=== PATIENT | female | born 1970 | race Two or more races ===

== ENCOUNTER 2022-07-26 16:22 | Emergency (ER) | payer BC, MEDICAID ==
[~2022-07-26] VITALS: Ht 160 cm; Wt 90.0 kg
== END 2022-07-26 16:33 | disposition short-term general hospital (02) ==
LOC: EDBD 16:22 → ER 16:22
DX: R20.0 Anesthesia of skin (principal); R29.810 Facial weakness; Z53.21 Procedure and treatment not carried out due to patient leaving prior to being seen by health care provider

== ENCOUNTER 2023-03-05 23:54 | Emergency (ER) | payer BC, MEDICAID ==
[~2023-03-05] VITALS: Ht 160 cm; Wt 111.8 kg
[2023-03-06 01:15] LABS: Basophils # (auto) 0 10 ^3/uL (0-0.2); Basophils % (auto) 0.3 % (0.0-2.0); Eosinophils # (auto) 0 10 ^3/uL (0-0.8); Hematocrit 39.6 % (36.0-46.0); Hemoglobin 13.2 g/dL (12.2-16.2); Lymphocytes # (auto) 0.6 10 ^3/uL (0.4-5.4); Lymphocytes % (auto) 6.4 % (10.0-50.0); Mean Corpuscular Hemoglobin 29.9 pg (28.0-32.0); Mean Corpuscular Hgb Conc. 33.3 g/dL (32.0-36.0); Mean Corpuscular Volume 89.7 fL (80.0-100.0); Monocytes # (auto) 0.3 10 ^3/uL (0-1.3); Monocytes % (auto) 3.3 % (0.0-12.0); Neutrophils # (auto) 8.1 10 ^3/uL (1.6-8.6); Red Blood Cells 4.42 10^6/uL (4.0-5.20)
[2023-03-06] MEDS ORDERED: cloNIDine HCL 0.1 MG TAB PO ONE ×2 (01:15→06:15)
[2023-03-06 01:31] LABS: Alanine Aminotransferase 32 U/L (7-40); Albumin 4.1 g/dL (3.2-4.8); Alkaline Phosphatase 100 U/L (46-116); Anion Gap 10 (5-15); Aspartate Aminotransferase 13 U/L (13-40); BUN/Creatinine Ratio 18.9 (10.0-20.0); Blood Urea Nitrogen 18 mg/dL (9-23); Calcium 9.1 mg/dL (8.7-10.4); Carbon Dioxide 28 mmol/L (20-30); Chloride 98 mmol/L (98-107); Lactic Acid w/Reflex 4.9 mmol/L (0.4-2.0); Magnesium 1.5 mg/dL (1.6-2.6); Potassium 3.4 mmol/L (3.5-5.1); Sodium 136 mmol/L (136-145)
[2023-03-06 01:32] LABS: Bilirubin, Total 0.5 mg/dL (0.2-1.0); Phosphorus 2.7 mg/dL (2.4-5.1); Total Protein 6.2 g/dL (5.7-8.2)
[2023-03-06 01:34] LABS: Glucose 448 mg/dL (74-106)
[2023-03-06] MEDS ORDERED: InsuLIN REG 1unit/0.01ml Soln (100units/ml) IV ONE (01:45)
[2023-03-06] MEDS ORDERED: SODIUM CHLORIDE 0.9% 1,000 ML IV ONE (01:45)
[2023-03-06 02:02] LABS: Erythrocyte Sedimentation Rate 19 mm/hr (0-20)
[2023-03-06] MEDS ORDERED: LORATADINE 10 MG TAB PO ONE (02:30)
[2023-03-06 05:23] LABS: Urine Bacteria FEW /hpf (None Seen); Urine Blood Negative /uL (Negative); Urine Clarity Clear (Clear); Urine Color Colorless (Yellow); Urine Protein, UAD TRACE (Negative); Urine Specific Gravity 1.043 (1.001-1.035); Urine Urobilinogen Normal (Negative); Urine WBC 3 /hpf (0 - 5)
[2023-03-06 07:34] VITALS: BP 137/84; PULSE 79; RESP 18; TEMP 97.9; O2SAT 96
== END 2023-03-06 21:05 | disposition left against medical advice (07) ==
LOC: ER 23:54
DX: L03.115 Cellulitis of right lower limb (principal); L03.116 Cellulitis of left lower limb; E11.65 Type 2 diabetes mellitus with hyperglycemia; I83.009 Varicose veins of unspecified lower extremity with ulcer of unspecified site; I16.0 Hypertensive urgency; E87.20 Acidosis, unspecified; Z88.0 Allergy status to penicillin; Z88.1 Allergy status to other antibiotic agents
CPT/HCPCS: 36415; 71045; 80053; 81001; 83605; 83735; 83880; 84100; 84484; 85025; 85379; 85652; 86141; 87040; 93005; 93970; 96360; 96361; 99285; J7030

== ENCOUNTER 2025-04-13 00:38 | Inpatient (IN) | payer BC, MEDICAID ==
[~2025-04-13] VITALS: Ht 162.6 cm; Wt 116.9 kg
--- NOTE | 2025-04-13 01:05 | ED.PDOC ---
Psychiatric HPI Comments 54-year-old female who came to ER via EMS for suicidal ideations. Per EMS patient picked up at home. Does have history of hypertension and diabetes/diabetic foot. Initial call for shortness of breath, saturating 94% on room air. However patient did started talking that she wanted to kill herself. States she was about to anyway, so she wants to shoot herself with a gun to get it over with. Chief Complaint: Suicidal Time Seen by MD: 01:04 Reviewed Notes: Senior Quality Analyst Notes Information Source: Patient Past Medical History PAST MEDICAL HISTORY: DM, HTN Past Medical History (Other): Diabetic foot Surgical History: Denies all surgeries ASSOCIATE MERCHANT History: Denies all ASSOCIATE MERCHANT Hx Family History Family History: Reviewed,noncontributory to illness Social History Smoker: Non-Smoker Alcohol: Denies ETOH Use Drugs: Denies Drug Use Lives In: Home Constitutional: denies: chills, diaphoresis, fatigue, fever, malaise, sweats, weakness, others EENTM: denies: blurred vision, double vision, ear bleeding, ear discharge, ear drainage, ear pain, ear ringing, eye pain, eye redness, hearing loss, mouth pain, mouth swelling, nasal discharge, nose bleeding, nose congestion, nose pain, photophobia, tearing, throat pain, throat swelling, voice changes, others Respiratory: denies: cough, hemoptysis, orthopnea, SOB at rest, shortness of breath, SOB with excertion, stridor, wheezing, others Cardiovascular: denies: chest pain, dizzy spells, diaphoresis, Dyspnea on exertion, edema, irregular heart beat, left arm pain, lightheadedness, palpitations, PND, syncope, others Gastrointestinal: denies: abdomen distended, abdominal pain, blood streaked bowels, constipated, diarrhea, dysphagia, difficulty swallowing, hematemesis, melena, nausea, poor appetite, poor fluid intake, rectal bleeding, rectal pain, vomiting, others Genitourinary: denies: abnormal vagina bleeding, burning, dyspareunia, dysuria, flank pain, frequency, hematuria, incontinence, pain, , vagina discharge, urgency, others Neurological: denies: dizziness, fainting, headache, left sided numbness, left sided weakness, numbness, paresthesia, pre-existing deficit, right sided numbness, right sided weakness, seizure, speech problems, tingling, tremors, weakness, others Musculoskeletal: denies: back pain, gout, joint pain, joint swelling, muscle pain, muscle stiffness, neck pain, others Integumetry: reports: wounds; denies: bruises, change in color, change in hair/nails, dryness, laceration, lesions, lumps, rash, others Allergic/Immunocompromised: denies: Difficulty Healing, Frequent Infections, Hives, Itching, others Hematologic/Lymphatic: denies: anemia, blood clots, easy bleeding, easy bruising, swollen glands, others Endocrine: denies: excessive hunger, excessive sweating, excessive thirst, excessive urination, flushing, intolerance to cold, intolerance to heat, unexplained weight gain, unexplained weight loss, others Psychiatric: reports: suicidal Physical Exam General Appearance: No Apparent Distress, Normal HEENT: Normal ENT Inspection, Pharynx Normal, TMs Normal Neck: Full Range of Motion, Non-Tender, Normal, Normal Inspection Respiratory: Chest Non-Tender, Lungs Clear, No Accessory Muscle Use, No Respiratory Distress, Normal Breath Sounds Cardiovascular: No Edema, No JVD, No Murmur, No Gallop, Normal Peripheral Pulses, Regular Rate/Rhythm Breast Exam: Deferred Gastrointestinal: No Organomegaly, Non Tender, No Pulsatile Mass, Normal Bowel Sounds, Soft Genitalia: Deferred Pelvic: Deferred Rectal: Deferred Extremities: No calf tenderness, Normal capillary refill, Normal inspection, Normal range of motion, Non-tender, No pedal edema Musculoskeletal : Apperance: Normal Neurologic: Alert, product marketing intern II-XII nml as Tested, No Motor Deficits, Normal Affect, Normal Mood, No Sensory Deficits Cerebellar Function: Normal Reflexes: Normal Skin: Dry, Normal Color, Warm Lymphatic: No Adenopathy Was a procedure done? Was a procedure done?: No Psych Differential Dx Suicidal Differential Dx: Anxiety, Bipolar Disorder, Depression, Personality Disorder, Schizoprenia X-Ray, Labs, Meds, VS Vital Signs Date Time Temp Pulse Resp B/P (MAP) Pulse Ox O2 Delivery O2 Flow Rate FiO2 04/13/25 01:55 104 20 97 Room Air* 0 21 04/13/25 01:19 98.1 107 20 178/104 (128) 97 98.1 04/13/25 00:40 98.0 112 18 161/101 96 98.0 Lab Test 04/13/25 02:26 04/13/25 02:25 04/13/25 01:28 Range/Units Urine Color Light-yellow Yellow Urine Clarity Clear Clear Urine pH 5.5 5.0-9.0 Urine Specific [place] 1.022 1.001-1.035 Urine Protein Trace H Negative Urine Ketones Negative Negative Urine Blood Negative Negative /uL Urine Nitrite Negative Negative Urine Bilirubin Negative Negative Urine Urobilinogen Normal Negative mg/dL Urine Leukocyte Esterase Negative Negative /uL Urine RBC 1 0 - 4 /hpf Urine Microscopic WBC 2 0-5 /HPF Urine Squamous Epithelial Cells Few <5 /hpf Urine Bacteria None seen None Seen /hpf Urine Glucose 4+ H Normal mg/dL Urine Opiates Screen Neg NEGATIVE Urine Fentanyl Screen Neg NEGATIVE Urine Barbiturates Screen Neg NEGATIVE Urine Phencyclidine Screen Neg NEGATIVE Urine Amphetamines Screen Neg NEGATIVE Urine Benzodiazepines Screen Neg NEGATIVE Urine Cocaine Screen Neg NEGATIVE Urine Cannabinoids Screen Neg NEGATIVE Troponin I High Sensitivity 25 31 </=34 ng/L White Blood Count 14.0 H 4.4-10.8 10^3/uL Red Blood Count 3.29 L 4.0-5.20 10^6/uL Hemoglobin 8.7 L 12.2-16.2 g/dL Hematocrit 27.5 L 36.0-46.0 % Mean Corpuscular Volume 83.4 80.0-100.0 fL Mean Corpuscular Hemoglobin 26.4 L 28.0-32.0 pg Mean Corpuscular Hemoglobin Concent 31.7 L 32.0-36.0 g/dL Red Cell Distribution Width 22.5 H 11.8-14.3 % Platelet Count 231 140-450 10^3/uL Mean Platelet Volume 8.0 6.9-10.8 fL Neutrophils (%) (Auto) 96.2 H 37.0-80.0 % Lymphocytes (%) (Auto) 2.7 L 10.0-50.0 % Monocytes (%) (Auto) 1.1 0.0-12.0 % Eosinophils (%) (Auto) 0.0 0.0-7.0 % Basophils (%) (Auto) 0.0 0.0-2.0 % Neutrophils # (Auto) 13.5 H 1.6-8.6 10 ^3/uL Lymphocytes # (Auto) 0.4 0.4-5.4 10 ^3/uL Monocytes # (Auto) 0.2 0-1.3 10 ^3/uL Eosinophils # (Auto) 0 0-0.8 10 ^3/uL Basophils # (Auto) 0 0-0.2 10 ^3/uL Nucleated Red Blood Cells 0.0 % Sodium Level 143 136-145 mmol/L Potassium Level 4.0 3.5-5.1 mmol/L Chloride Level 105 98-107 mmol/L Carbon Dioxide Level 27 20-31 mmol/L Anion Gap 11 5-15 Blood Urea Nitrogen 23 9-23 mg/dL Creatinine 0.95 0.550-1.02 mg/dL Glomerular Filtration Rate Calc 72 >90 mL/min BUN/Creatinine Ratio 24.2 H 10.0-20.0 Serum Glucose 383 H 74-106 mg/dL Lactic Acid Level 1.6 0.4-2.0 mmol/L Calcium Level 8.3 L 8.7-10.4 mg/dL Total Bilirubin 0.3 0.2-1.0 mg/dL Aspartate Amino Transferase (AST) 23 13-40 U/L Alanine Aminotransferase (ALT) 21 7-40 U/L Alkaline Phosphatase 125 H 46-116 U/L Total Protein 5.2 L 5.7-8.2 g/dL Albumin 3.1 L 3.2-4.8 g/dL Salicylates Level < 3.0 -30 mg/dL Acetaminophen Level < 2.0 L 10.0-20.0 UG/ML Plasma/Serum Blood Alcohol < 3.0 <10 mg/dL Current Medications Medications (Trade) Dose Ordered Sig/Mary [place] Route Start Time Stop Time Status Last Admin Insulin Human Regular (InsuLIN R) 5 units ONCE ONCE IV 04/13/25 03:00 04/13/25 03:01 DC 04/13/25 03:00 Sodium Chloride 1,000 ml @ 1,000 mls/hr Q1H ONCE IV 04/13/25 03:00 04/13/25 03:59 04/13/25 03:00 Time of 1ST Reevaluation: 01:04 Reevaluation 1ST: Unchanged Patient Education/Counseling: Diagnosis, Treatment Family Education/Counseling: No Family Present Departure 1 Departure Time of Disposition: 03:49 Impression: Primary Impression: Uncontrolled diabetes mellitus Additional Impressions: Severe hyperglycemia due to diabetes mellitus Cellulitis of both feet Verbalizes suicidal thoughts Disposition: 09 ADMITTED INPATIENT Admit to: Med Surg Condition: Guarded Discharged With: Self Comments 54 yo female with h/o type 2 DM now with severe hyperglycemia and bilateral foot cellulitis with diabetic foot ulcers. patient expresses suicidal thoughts but no active plan. patient will need admission for supportive care and further workup Critical Care Note Critical Care Time?: Yes (35 min-critical care time only) Critical care comment: Total critical care time: Approximately 36 minutes Due to a high probability of clinically significant, life threatening deterioration, the patient required my highest level of preparedness to intervene emergently and I personally spent this critical care time directly and personally managing the patient. This critical care time included obtaining a history; examining the patient; pulse oximetry; ordering and review of studies; arranging urgent treatment with development of a management plan; evaluation of patient's response to treatment; frequent reassessment; and, discussions with other providers. This critical care time was performed to assess and manage the high probability of imminent, life-threatening deterioration that could result in multi-organ failure. It was exclusive of separately billable procedures and treating other patients. Stability Stability form required: No Heart Score Heart Score: Heart Score Response (Comments) Value History N/A 0 EKG N/A 0 Age N/A 0 Risk Factors N/A 0 Troponin N/A 0 Total 0 I personally scribed for SHALA BRANNON MD ([email or web address]) on 04/13/25 at 01:05. Electronically submitted by Saman uBll ([email or web address]). SHALA BRANNON MD Apr 13, 2025 01:05
[2025-04-13 01:51] LABS: Hematocrit 27.5 % (36.0-46.0)
[2025-04-13 01:53] LABS: Hemoglobin 8.7 g/dL (12.2-16.2); Mean Corpuscular Hemoglobin 26.4 pg (28.0-32.0); Mean Corpuscular Volume 83.4 fL (80.0-100.0); Nucleated Red Blood Cells % 0.0 %
[2025-04-13 01:55] VITALS: PULSE 104; RESP 20; O2SAT 97
[2025-04-13] MEDS ORDERED: CLINDAMYCIN 600MG IV 50 ML IV SCH (02:00)
[2025-04-13 02:06] LABS: Alanine Aminotransferase 21 U/L (7-40); Anion Gap 11 (5-15); BUN/Creatinine Ratio 24.2 (10.0-20.0); Bilirubin, Total 0.3 mg/dL (0.2-1.0); Carbon Dioxide 27 mmol/L (20-31); Chloride 105 mmol/L (98-107); Potassium 4.0 mmol/L (3.5-5.1); Sodium 143 mmol/L (136-145)
[2025-04-13 02:07] LABS: Acetaminophen < 2.0 UG/ML (10.0-20.0); Salicylate < 3.0 mg/dL (-30)
[2025-04-13 02:09] LABS: Albumin 3.1 g/dL (3.2-4.8); Alkaline Phosphatase 125 U/L (46-116); Blood Urea Nitrogen 23 mg/dL (9-23); Calcium 8.3 mg/dL (8.7-10.4); Glucose 383 mg/dL (74-106); Total Protein 5.2 g/dL (5.7-8.2)
[2025-04-13 02:42] LABS: Urine Protein, UAD TRACE (Negative)
[2025-04-13 02:44] LABS: Benzodiazephine Screen, Urine Neg (NEGATIVE)
[2025-04-13 02:47] LABS: Amphetamine Screen, Urine Neg (NEGATIVE); Barbiturate Scree,Urine Neg (NEGATIVE); Cannabinoid Screen, Urine Neg (NEGATIVE); Cocaine Screen, Urine Neg (NEGATIVE); Opiate Scree,Urine Neg (NEGATIVE); Phencyclidine Screen, Urine Neg (NEGATIVE)
[2025-04-13] MEDS: InsuLIN REG 1unit/0.01ml Soln (100units/ml) IV ONE (03:00)
[2025-04-13] MEDS: SODIUM CHLORIDE 0.9% 1,000 ML IV ONE (03:00)
[2025-04-13] MEDS: VANCOMYCIN 1GM/250ML KIT 250 ML IV ONE (04:07)
[2025-04-13] MEDS: ceFAZolin 1GM/50ML 50 ML IV ONE (04:15)
[2025-04-13] MEDS ORDERED: DEXTROSE (50%) 50ML SYRG IV PRN (05:45)
[2025-04-13] MEDS ORDERED: VANCOMYCIN PER PHARMACY 0 MG IV SCH (05:45)
[2025-04-13] MEDS ORDERED: ACETAMINOPHEN 325 MG TAB PO PRN (05:45)
[2025-04-13] MEDS ORDERED: ONDANSETRON HCL 4 MG/2 ML VIAL IV PRN (05:45)
[2025-04-13] MEDS: CLINDAMYCIN 600MG IV 50 ML IV SCH (06:00)
--- NOTE | 2025-04-13 06:09 | DVHHP2 ---
Admitting Diagnosis: Bilateral lower extremity diabetic ulcers, BLE cellulitis, Leukocytosis, Anemia, SI History of Present Illness History Source: Patient Exam Limitations: No limitations HPI Mrs. Lila Price is a 54-year-old female with a history of DM, non compliant, hypertension, chronic venous stasis, who presents with a chief complaint of shortness of breath for suicidal ideations. Patient is on room air with 02 saturations of 97% with no respiratory distress. Patient reports she forgot to take her insulin and that is why her glucose levels are high. Patient reports she does not have anymore SI or thoughts of harming others. Patient states last time she saw wound care was about a month ago and has been managing her diabetic leg ulcers on her own. Patient denies chest pain, fevers, chills. Patient admitted for further evaluation and treatment. Past Medical History Cardiac: HTN Endocrine: IDDM Others BLE diabetic ulcers Review of Systems Constitutional: No symptom reported Ears, Nose, & Throat: No symptom reported Eyes: No symptom reported Pulmonary/Respiratory: Dyspnea Cardiovascular: No symptom reported Gastrointestinal: No symptom reported Genitourinary: No symptom reported Musculoskeletal: No symptom reported Skin: No symptom reported Psychiatric: No symptom reported Endocrine: No symptom reported Hemotologic/Lymphatic: No symptom reported H&P Exam Vital Signs Vital Signs Date Time Temp Pulse Resp B/P (MAP) Pulse Ox O2 Delivery O2 Flow Rate FiO2 04/13/25 04:45 97.9 88 18 137/96 (110) 97 97.9 04/13/25 01:55 Room Air* 0 21 General Appeara: Well developed, Well nourished, Other (morbid obesity) Head Exam: Normal inspection Neck Exam: Normal inspection, Non-tender, Normal alignment Eye Exam: bilateral eye Normal inspection, bilateral eye PERRL, bilateral eye EOMI Ear Exam: bilateral ear Auricle normal Nasal Exam: Normal inspection Mouth: Normal Inspection Pulmonary/Respiratory: Normal inspection, Normal breath sounds, Chest non- tender, Lungs clear Cardiovascular/Chest: Normal inspection, Regular rate, Normal Rhythm Peripheral Pulses: 2+ Radial (R), 2+ Radial (L) Abdominal Exam: Normal bowel sounds, Soft, No tenderness Legs: bilateral leg pain, bilateral leg swelling, bilateral leg other (diabetic ulcers) Foot: bilateral foot swelling SUPERIOR COURT JUDGE Exam: Normal hearing, Normal speech, PERRL Neuro/Mental St: Alert, Oriented Appearance: Appropriate appearance, Appropriate insight Eye contact/ Speech: Cooperative, Normal speech, Avoids eye contact Thoughts/Psych: Normal thought pattern Skin Exam: Normal color, Warm/dry, Other (BLE venous stasis with diabetic ulcers ) SEPSIS Sepsis Screen Date sepsis recognized/suspect: Apr 13, 2025 Time Sepsis recognized/suspect: 0123 Recent Procedure: No On Antibiotic Therapy: No Respiratory Rate >20: No Heart Rate >90: No Temp<36 C (96.8 F) or >38.3 C: No SBP <90 or MAP <65 mmHG: No New Acute Mental Status Change: Yes Is the patient on CPAP, BIPAP,: No Physician Orders Blood Culture (04/13/25 00:57) Chest Portable (04/13/25 00:57) Troponin-I Hs (04/13/25 03:57) R Foot 2 View Xray (04/13/25 01:00) L Foot 2 View Xray (04/13/25 01:00) *Tele Psych Consult (04/13/25 04:55) Initiate Soc Call (04/13/25 04:55) Sitter 1:1 (04/13/25 04:56) Left Lower Extremity Ultrasoun (04/13/25 05:44) Right Lower Extremity Ultrasou (04/13/25 05:44) D-Dimer (04/13/25 05:44) * Fiber Optics Technician Consult (04/13/25 ) Admit (04/13/25 05:44) *Rn Transformation Lead Referral (04/13/25 05:44) [facility]Diabetes (04/13/25 Breakfast) * Wound Consult (04/13/25 ) Stat Ekg For Chest Pain (04/13/25 05:44) Notify Md Of Changes From Base (04/13/25 05:44) Wastewater Technician For 24 Hours (04/13/25 05:44) Emergency Dysrhythmia Protocol (04/13/25 05:44) Rhythm Strips Once Every Shift (04/13/25 05:44) Oxygen By Nasal Cannula (04/13/25 05:44) Complete Blood Count (04/14/25 05:00) Complete Blood Count (04/15/25 05:00) Stool Occult Blood (04/13/25 05:44) Wound Culture W/ Gs (04/13/25 05:44) Vancomycin (04/13/25 05:45) Clindamycin Ivpb Cleocin (04/13/25 06:00) Ondansetron Hcl (Zofran) (04/13/25 05:45) Famotidine Tablet (Pepcid Tablet) (04/13/25 10:00) Hydrocodone-Acet 5/325mg Tab ([place] 5/32 (04/13/25 05:45) Acetaminophen Tablet (Tylenol Tablet) (04/13/25 05:45) Glucose Blood (Accu-Chek Comfort Curve T (04/13/25 07:00) Mild Sliding Scale (04/13/25 07:00) Dextrose 50% Syringe (04/13/25 05:45) * Infectious [place]- Dr. Ledezma (04/13/25 05:44) Vital Signs Date Time Temp Pulse Resp B/P (MAP) Pulse Ox O2 Delivery O2 Flow Rate FiO2 04/13/25 04:45 97.9 88 18 137/96 (110) 97 97.9 04/13/25 01:55 104 20 97 Room Air* 0 21 04/13/25 01:19 98.1 107 20 178/104 (128) 97 98.1 04/13/25 00:40 98.0 112 18 161/101 96 98.0 Laboratory Tests Test 04/13/25 01:28 Lactic Acid Level 1.6 mmol/L (0.4-2.0) White Blood Count 14.0 10^3/uL (4.4-10.8) H Medications Medications Dose Ordered Sig/Mary Anne Route Start Time Stop Time Status Last Admin Dose Admin Cefazolin Sodium 50 ml @ 100 mls/hr ONCE ONCE IV 04/13/25 04:00 04/13/25 04:29 DC 04/13/25 04:15 100 MLS/HR Insulin Human Regular 5 units ONCE ONCE IV 04/13/25 03:00 04/13/25 03:01 DC 04/13/25 03:00 5 UNITS Sodium Chloride 1,000 ml @ 1,000 mls/hr Q1H ONCE IV 04/13/25 03:00 04/13/25 03:59 DC 04/13/25 03:00 1,000 MLS/HR Vancomycin HCl 250 ml @ 250 mls/hr ONCE ONCE IV 04/13/25 04:00 04/13/25 04:59 DC 04/13/25 04:07 250 MLS/HR Wounds BLE venous stasis, with diabetic ulcers Labs/Xrays Labs Test 04/13/25 04:49 04/13/25 02:26 04/13/25 01:28 Range/Units Urine Color Light-yellow Yellow Urine Clarity Clear Clear Urine pH 5.5 5.0-9.0 Urine Specific [place] 1.022 1.001-1.035 Urine Protein Trace H Negative Urine Ketones Negative Negative Urine Blood Negative Negative /uL Urine Nitrite Negative Negative Urine Bilirubin Negative Negative Urine Urobilinogen Normal Negative mg/dL Urine Leukocyte Esterase Negative Negative /uL Urine RBC 1 0 - 4 /hpf Urine Microscopic WBC 2 0-5 /HPF Urine Squamous Epithelial Cells Few <5 /hpf Urine Bacteria None seen None Seen /hpf Urine Glucose 4+ H Normal mg/dL Urine Opiates Screen Neg NEGATIVE Urine Fentanyl Screen Neg NEGATIVE Urine Barbiturates Screen Neg NEGATIVE Urine Phencyclidine Screen Neg NEGATIVE Urine Amphetamines Screen Neg NEGATIVE Urine Benzodiazepines Screen Neg NEGATIVE Urine Cocaine Screen Neg NEGATIVE Urine Cannabinoids Screen Neg NEGATIVE White Blood Count 14.0 H 4.4-10.8 10^3/uL Red Blood Count 3.29 L 4.0-5.20 10^6/uL Hemoglobin 8.7 L 12.2-16.2 g/dL Hematocrit 27.5 L 36.0-46.0 % Mean Corpuscular Volume 83.4 80.0-100.0 fL Mean Corpuscular Hemoglobin 26.4 L 28.0-32.0 pg Mean Corpuscular Hemoglobin Concent 31.7 L 32.0-36.0 g/dL Red Cell Distribution Width 22.5 H 11.8-14.3 % Platelet Count 231 140-450 10^3/uL Mean Platelet Volume 8.0 6.9-10.8 fL Neutrophils (%) (Auto) 96.2 H 37.0-80.0 % Lymphocytes (%) (Auto) 2.7 L 10.0-50.0 % Monocytes (%) (Auto) 1.1 0.0-12.0 % Eosinophils (%) (Auto) 0.0 0.0-7.0 % Basophils (%) (Auto) 0.0 0.0-2.0 % Neutrophils # (Auto) 13.5 H 1.6-8.6 10 ^3/uL Lymphocytes # (Auto) 0.4 0.4-5.4 10 ^3/uL Monocytes # (Auto) 0.2 0-1.3 10 ^3/uL Eosinophils # (Auto) 0 0-0.8 10 ^3/uL Basophils # (Auto) 0 0-0.2 10 ^3/uL Nucleated Red Blood Cells 0.0 % Sodium Level 143 136-145 mmol/L Potassium Level 4.0 3.5-5.1 mmol/L Chloride Level 105 98-107 mmol/L Carbon Dioxide Level 27 20-31 mmol/L Anion Gap 11 5-15 Blood Urea Nitrogen 23 9-23 mg/dL Creatinine 0.95 0.550-1.02 mg/dL Glomerular Filtration Rate Calc 72 >90 mL/min BUN/Creatinine Ratio 24.2 H 10.0-20.0 Serum Glucose 383 H 74-106 mg/dL Lactic Acid Level 1.6 0.4-2.0 mmol/L Calcium Level 8.3 L 8.7-10.4 mg/dL Total Bilirubin 0.3 0.2-1.0 mg/dL Aspartate Amino Transferase (AST) 23 13-40 U/L Alanine Aminotransferase (ALT) 21 7-40 U/L Alkaline Phosphatase 125 H 46-116 U/L Total Protein 5.2 L 5.7-8.2 g/dL Albumin 3.1 L 3.2-4.8 g/dL Salicylates Level < 3.0 -30 mg/dL Acetaminophen Level < 2.0 L 10.0-20.0 UG/ML Plasma/Serum Blood Alcohol < 3.0 <10 mg/dL Assessment/Plan Problem List: (1) Lower extremity cellulitis (2) Venous stasis ulcer (3) Severe hyperglycemia due to diabetes mellitus (4) Uncontrolled diabetes mellitus (5) Verbalizes suicidal thoughts (6) Leukocytosis (7) Anemia Plan This is a 54-year-old female with known history of DM, non compliant, hypertension, chronic venous stasis, who presents to the hospital with shortness of breath for suicidal ideations. Patient found to have 1. Bilateral lower extremity cellulitis 2. BLE venous stasis with diabetic ulcers 3. Leukocytosis 4. Uncontrolled DM with Hyperglycemia 5. Hypertension 6. SI 7. Anemia Plan Admit Med Surgical Infectious Disease consultation IV antibiotics Social Service consultation Tele Psych consultation Sitter 1:1 until cleared by tele psych GI ppx Stool occult blood Monitor CBC Glucose monitoring ac & hs coverage with insulin sliding scale Wound care consult Diabetic education referral Discussed all above with patient who verbalizes agreement and understanding of care plan. All questions were answered. Discussed with supervising MD. Plan discussed with: Patient, Other Code Visit Code Visit Total Time (mins): 45 Additional Comments Additional Comments Additional Comments Patient's chart is reviewed and discussed with the nurse practitioner. Patient is seen evaluated and admitted by MICROBIOLOGY ANALYST. I agree with her evaluation, documentation, assessment and care plan as outlined. Patient's ultrasound of the legs came back bilateral lower extremity DVT. Therefore she will be started on IV heparin drip. Patient is seen and evaluated by me in person this afternoon. Continue present management. IVIS HANCOCK Apr 13, 2025 06:09 ROBERTO CABRERA MD Apr 13, 2025 15:13
--- NOTE | 2025-04-13 06:21 | DVH ---
XY R FOOT 2 VIEW XRAY, XY L FOOT 2 VIEW XRAY, INDICATION: bilateral feet swelling / diabetic ulcer TECHNICAL DATA: Frontal, oblique and lateral views were obtained of the right and left foot. COMPARISON: None IMPRESSION: Right foot: There is large soft tissue ulceration in the anterior and likely lateral leg and ankle. No discrete area of osseous erosion or periosteal reaction to suggest focal osteomyelitis. Large plantar enthesophyte. Degenerative changes of the midfoot. Left foot: Diffuse soft tissue swelling, soft tissue gas difficult to exclude. No evidence of osseous erosion or periosteal reaction to suggest focal osteomyelitis. Large plantar calcaneal enthesophyte degenerative changes of the midfoot. If clinical concern persists, consider 3-phase bone scan or MRI with contrast.
[2025-04-13] MEDS: ACCU-CHEK COMFORT CURVE STRIP VI SCH (06:24)
--- NOTE | 2025-04-13 06:25 | DVH ---
CHEST RADIOGRAPH INDICATION: SOB TECHNIQUE: Single frontal view of the chest was obtained COMPARISON: XY CHEST XRAY 1 VIEW on DOS: 03/06/23 IMPRESSION: There are low lung volumes. Heart is moderate in size. No sizable effusion or pneumothorax. Prominent right pulmonary artery, stable.
[2025-04-13] MEDS: InsuLIN REG 1unit/0.01ml Soln (100units/ml) SC SCH (06:30)
[2025-04-13 06:33] LABS: Iron 10.0 ug/dL (50-170)
[2025-04-13 06:35] LABS: Total Iron Binding Capacity 260.0 ug/dL (250-425)
[2025-04-13 08:46] VITALS: PULSE 84; RESP 12; O2SAT 96
[2025-04-13] MEDS: FAMOTIDINE 20 MG TAB PO SCH (09:44)
[2025-04-13] MEDS: HYDROcodone-ACET 5/325MG TAB PO PRN (10:26)
--- NOTE | 2025-04-13 10:42 | DVH ---
Bilateral lower extremity venous duplex CLINICAL HISTORY: swelling,pain COMPARISON: VAS VENOUS REFLUX INSUFFICIENCY BILAT on DOS: 10/03/23, US BILAT LOWER DVT on DOS: 03/06/23 TECHNIQUE: Duplex Doppler evaluation of the deep venous systems of both lower extremities from the common femoral veins to the popliteal veins including color Doppler and spectral/pulsed waveform analysis was performed. FINDINGS/IMPRESSION: Extensive deep vein thrombosis seen within bilateral lower extremities with nonocclusive thrombi within bilateral common femoral vein and occlusive thrombi within the bilateral SFV prox through the popliteal veins. Dr. Stroud was notified by Corinne Johnson at 10:30am [facility] [place] on 04/13/25
[2025-04-13] MEDS ORDERED: HEPARIN SODIUM (PORCINE) 5000 UNITS/ML 1ML VIAL IV ONE ×2 (10:45→11:00)
[2025-04-13] MEDS ORDERED: METOPROLOL TARTRATE 1MG/1ML-5ML VIAL IV PRN (10:45)
[2025-04-13 12:31] LABS: INR 1.01 (0.9-1.15); Partial Thromboplastin Time 25.9 SEC (24.5-34.5); Prothrombin Time 10.7 sec (9.3-11.8)
[2025-04-13] MEDS: HEPARIN SODIUM (PORCINE) 5000 UNITS/ML 1ML VIAL IV ONE (13:00)
[2025-04-13] MEDS: HEPARIN DRIP/D5W 100UNITS/ML 250 ML IV SCH ×2 (13:15→21:47)
[2025-04-13] MEDS ORDERED: IOHEXOL 350 MG/ML 100ML IJ ONE (15:52)
[2025-04-13 16:36] VITALS: BP 147/87; PULSE 105; RESP 17; RESP 20; TEMP 98.5; O2SAT 99
--- NOTE | 2025-04-13 17:16 | DVH ---
CTA Chest with intravenous contrast INDICATION: Shortness of breath with DVT COMPARISON: XY CHEST PORTABLE on DOS: 04/13/25, XY CHEST XRAY 1 VIEW on DOS: 03/06/23 TECHNIQUE: Multidetector spiral CTA of the chest was performed of the chest with intravenous contrast. PULMONARY ANGIOGRAPHY PROTOCOL was utilized using a bolus- tracking technique centered on the main pulmonary artery. Axial, coronal and sagittal multiplanar and MIP reformats were performed. Radiation Dose : 1. Chest: CTDI volume is 27.27 mGy. Dose-length product is 899.22 mGy*cm The dose indicators for CT are the volume Computed Tomography (CT) Dose Index (CTDIvol) and the Dose Length Product (DLP), and are measured in units of mGy and mGy-cm, respectively. These indicators are not patient dose, but values generated from the CT scanner acquisition factors. The report includes radiation exposure data for exposures received during this examination. FINDINGS: Pulmonary artery: Multiple right-sided segmental and subsegmental pulmonary emboli. No significant right heart strain. Lower neck: Normal thyroid. Lungs: Wedge-shaped density in the right upper lobe may reflect pulmonary infarct versus mild pneumonia. Heart/Vascular Structures: Normal heart size. No pericardial effusion. Pericardial cyst is seen in the AP window measuring up to 3.4 cm, likely benign Lymph Nodes: No adenopathy Pleura: No pleural effusion or significant pneumothorax. Musculoskeletal: No acute osseous abnormality. Soft tissues: Normal. Upper abdomen: Infrarenal IVC filter is partially visualized. IMPRESSION: 1. Multiple right-sided segmental and subsegmental pulmonary emboli. No right heart strain. 2. Wedge-shaped density in the right upper lobe may reflect pulmonary infarct versus mild pneumonia.
[2025-04-13] MEDS: PANTOPRAZOLE 40 MG TAB PO SCH (18:51)
[2025-04-13 20:00] VITALS: PULSE 117; O2SAT 95
[2025-04-13 20:27] LABS: INR 1.01 (0.9-1.15); Prothrombin Time 10.7 sec (9.3-11.8)
[2025-04-13 20:34] LABS: Partial Thromboplastin Time > 139.0 SEC (24.5-34.5)
[2025-04-13 21:00] VITALS: BP 156/86; PULSE 111; RESP 18; TEMP 98.2; O2SAT 95
[2025-04-13] MEDS: INSULIN LANTUS (GLARGINE) 1 /0.01ml (100units/ml) SC SCH (21:37)
[2025-04-14] VITALS (8 sets, daily range): BP systolic 117–155; BP diastolic 67–89; PULSE 99–121; RESP 16–20; TEMP 98.3–99.5; O2SAT 93–98
[2025-04-14] MEDS: CLINDAMYCIN 600MG IV 50 ML IV SCH (02:02)
[2025-04-14 05:35] LABS: Hemoglobin 7.4 g/dL (12.2-16.2)
[2025-04-14 05:37] LABS: Hematocrit 24.0 % (36.0-46.0); Mean Corpuscular Hemoglobin 26.3 pg (28.0-32.0); Mean Corpuscular Volume 85.1 fL (80.0-100.0); Nucleated Red Blood Cells % 0.1 %
[2025-04-14 12:02] LABS: INR 0.99 (0.9-1.15); Prothrombin Time 10.5 sec (9.3-11.8)
[2025-04-14 12:10] LABS: Partial Thromboplastin Time > 139.0 SEC (24.5-34.5)
[2025-04-14] MEDS: IRON SUCROSE COMPLEX 110 ML IV SCH (13:33)
--- NOTE | 2025-04-14 13:34 | CONS ---
Pharmacy Clinical Information: HEPARIN DRIP, DVT PROTOCOL @10:55 APTT >139 - HOLD INFUSION 1 HOUR STARTING @1230 DECREASE HEPARIN DRIP RATE TO 1400 UNITS/HR @1330 NEXT APTT DRAW SCHEDULED @1930 PER RX PROTOCOL CONFIRMED AND READ BACK WITH NAYE TINAJERO,[facility] Apr 14, 2025 13:34
--- NOTE | 2025-04-14 13:38 | DVHINCON2 ---
Date of Service if different f: Apr 14, 2025 Time of Service: 13:36 Consultation ([facility]) Consulting Physician: BHARAT CRAWFORD MD Labs Laboratory Tests Test 04/13/25 01:28 04/13/25 02:26 04/13/25 04:49 04/13/25 11:46 Sodium Level 143 mmol/L (136-145) Potassium Level 4.0 mmol/L (3.5-5.1) Chloride Level 105 mmol/L (98-107) Carbon Dioxide Level 27 mmol/L (20-31) Anion Gap 11 (5-15) Blood Urea Nitrogen 23 mg/dL (9-23) Creatinine 0.95 mg/dL (0.550-1.02) Glomerular Filtration Rate Calc 72 mL/min (>90) BUN/Creatinine Ratio 24.2 (10.0-20.0) Serum Glucose 383 mg/dL (74-106) Lactic Acid Level 1.6 mmol/L (0.4-2.0) Calcium Level 8.3 mg/dL (8.7-10.4) Iron Level 10 ug/dL (50-170) Total Iron Binding Capacity 260 ug/dL (250-425) Percent Iron Saturation 3.8 % (15-50) Ferritin 88.9 ng/mL (10-291) Total Bilirubin 0.3 mg/dL (0.2-1.0) Aspartate Amino Transf (AST/SGOT) 23 U/L (13-40) Alanine Aminotransferase (ALT/SGPT) 21 U/L (7-40) Alkaline Phosphatase 125 U/L (46-116) Total Protein 5.2 g/dL (5.7-8.2) Albumin 3.1 g/dL (3.2-4.8) Salicylates Level < 3.0 mg/dL (-30) Acetaminophen Level < 2.0 UG/ML (10.0-20.0) Plasma/Serum Blood Alcohol < 3.0 mg/dL (<10) Urine Color Light-yellow (Yellow) Urine Clarity Clear (Clear) Urine pH 5.5 (5.0-9.0) Urine Specific [place] 1.022 (1.001-1.035) Urine Protein Trace (Negative) Urine Ketones Negative (Negative) Urine Blood Negative /uL (Negative) Urine Nitrite Negative (Negative) Urine Bilirubin Negative (Negative) Urine Urobilinogen Normal mg/dL (Negative) Urine Leukocyte Esterase Negative /uL (Negative) Urine RBC 1 /hpf (0 - 4) Urine Microscopic WBC 2 /HPF (0-5) Urine Squamous Epithelial Cells Few /hpf (<5) Urine Bacteria None seen /hpf (None Seen) Urine Glucose 4+ mg/dL (Normal) Urine Opiates Screen Neg (NEGATIVE) Urine Fentanyl Screen Neg (NEGATIVE) Urine Barbiturates Screen Neg (NEGATIVE) Urine Phencyclidine Screen Neg (NEGATIVE) Urine Amphetamines Screen Neg (NEGATIVE) Urine Benzodiazepines Screen Neg (NEGATIVE) Urine Cocaine Screen Neg (NEGATIVE) Urine Cannabinoids Screen Neg (NEGATIVE) Troponin I High Sensitivity 20 ng/L (</=34) D-Dimer, Quantitative 3.56 mg/L FEU (0.0-0.49) Test 04/14/25 04:45 04/14/25 05:54 04/14/25 10:55 White Blood Count 10.5 10^3/uL (4.4-10.8) Red Blood Count 2.83 10^6/uL (4.0-5.20) Hemoglobin 7.4 g/dL (12.2-16.2) Hematocrit 24.0 % (36.0-46.0) Mean Corpuscular Volume 85.1 fL (80.0-100.0) Mean Corpuscular Hemoglobin 26.3 pg (28.0-32.0) Mean Corpuscular Hemoglobin Concent 30.9 g/dL (32.0-36.0) Red Cell Distribution Width 23.0 % (11.8-14.3) Platelet Count 221 10^3/uL (140-450) Mean Platelet Volume 8.4 fL (6.9-10.8) Neutrophils (%) (Auto) 76.8 % (37.0-80.0) Lymphocytes (%) (Auto) 19.1 % (10.0-50.0) Monocytes (%) (Auto) 3.4 % (0.0-12.0) Eosinophils (%) (Auto) 0.2 % (0.0-7.0) Basophils (%) (Auto) 0.5 % (0.0-2.0) Neutrophils # (Auto) 8.1 10 ^3/uL (1.6-8.6) Lymphocytes # (Auto) 2.0 10 ^3/uL (0.4-5.4) Monocytes # (Auto) 0.4 10 ^3/uL (0-1.3) Eosinophils # (Auto) 0 10 ^3/uL (0-0.8) Basophils # (Auto) 0.1 10 ^3/uL (0-0.2) Nucleated Red Blood Cells 0.1 % Bedside Glucose 269 mg/dl (70-106) Prothrombin Time 10.5 sec (9.3-11.8) Prothromb Time International Ratio 0.99 (0.9-1.15) Activated Partial Thromboplast Time > 139.0 SEC (24.5-34.5) Microbiology Date/Time Source Procedure Growth Status 04/13/25 07:40 Leg Right Gram Stain Pending Resulted 04/13/25 07:40 Leg Right Wound Culture - Preliminary Resulted 04/13/25 01:39 Blood Blood Culture - Preliminary NO GROWTH AFTER 24 HOURS OF INCUBATION. Resulted Vitals Vital Signs Date Time Temp Pulse Resp B/P (MAP) Pulse Ox O2 Delivery O2 Flow Rate FiO2 04/14/25 12:30 98.7 120 18 121/74 (90) 96 98.7 04/13/25 20:00 Room Air* 0 21 Current medications Current Medications Medications Dose Ordered Sig/Mary Anne Route Start Time Stop Time Status Last Admin Dose Admin Vancomycin HCl 0 ml @ 0 mls/hr PER PHARMACY IV 04/13/25 05:45 UNV Ondansetron HCl 4 mg Q6HPRN PRN IV 04/13/25 05:45 Acetaminophen/ Hydrocodone Bitart 1 tab Q6HPRN PRN PO 04/13/25 05:45 Acetaminophen 650 mg Q6HPRN PRN PO 04/13/25 05:45 Diagnostic Test (Pha) 1 strip ACHS 04/13/25 07:00 04/14/25 11:40 1 STRIP Insulin Human Regular ACHS SC 04/13/25 07:00 04/14/25 12:58 4 UNITS Dextrose 50 ml UD PRN IV 04/13/25 05:45 Hydralazine HCl 25 mg Q6HR PO 04/13/25 12:00 04/14/25 05:51 25 MG Metoprolol Tartrate 2.5 mg Q6HPRN PRN IV 04/13/25 10:45 Pantoprazole Sodium 40 mg BID@0600,1700 PO 04/13/25 17:00 04/14/25 05:51 40 MG Insulin Glargine 10 units HS SC 04/13/25 22:00 04/13/25 21:37 10 UNITS Iron Sucrose 110 ml @ 110 mls/hr DAILY@1200 IV 04/14/25 12:00 04/18/25 11:59 04/14/25 13:33 110 MLS/HR Clindamycin Phosphate 50 ml @ 50 mls/hr Q8H IV 04/14/25 02:00 04/14/25 11:40 50 MLS/HR Heparin Sodium/ Dextrose 250 ml @ 14 mls/hr [id number] IV 04/14/25 13:45 PSYCHIATRY CONSULTATION INITIAL EVALUATION REASON FOR CONSULT: SI HPI: 54-year-old woman with history of depression (on home bupropion XL per chart) and significant medical comorbidities, currently admitted for uncontrolled diabetes mellitus with diabetic ulcers and recent pulmonary embolism (patient reports being told she has a blood clot), for which she initially called 911 due to acute shortness of breath. Psychiatry consulted for suicidal ideation after the patient reportedly made a suicidal statement at home when EMS arrived. On interview today, the patient is engaged and states she has been better, at times laughing, and clearly endorses a desire to live. She explains that her prior statement reflected acute frustration and overwhelm related to a prolonged (?2 years) decline in her health and functioningspecifically progressive leg pain/heaviness, impaired mobility requiring assistance, and feeling that nothing is getting better despite ongoing care. She also describes chronic psychosocial stressors, including emotional strain related to her fathers dementia and family caregiving burden. Since hospitalization, she reports worsening subjective shortness of breath and new/worsening chest pain, and she is increasingly anxious because she feels she has not been able to speak with the primary medical team, does not understand her test results, and does not know the plan of care. She repeatedly emphasizes that lack of information is driving her anxiety and irritability, and she requests clearer communication about diagnostic studies, results, and next steps. 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 She denies current suicidal ideation, intent, or plan, and denies prior attempts or self-injury. She acknowledges firearms are in the home, locked, and states her controls the code; she denies any desire to access them and states she would not harm herself. PSYCHIATRIC HISTORY: DIAGNOSIS: Depression ADMISSIONS: None prior MEDICATION TRIALS: Wellbutrin XL 300 mg daily for depression OUTPATIENT CARE: No OP psychiatrist. THERAPY: Not in therapy. SI/SELF-INJURY/SUICIDE ATTEMPT: Denies prior. Pt does have home access to firearms. They are locked and has the code. Pt says she is not going to hurt herself. SUBSTANCE USE: Uses MJ on occasion. Denies other drugs and alcohol. ALLERGIES: PCN Sulfa drugs MENTAL STATUS EXAMINATION: Patient is an adult woman in hospital attire, cooperative and engaged throughout the interview, with appropriate eye contact and no psychomotor agitation or retardation observed. Speech is normal in rate, rhythm, and volume. She describes her mood as better, and affect is full in range, congruent and reactiveshe becomes tearful at times when discussing her health decline and fa thers dementia, and laughs appropriately at times, overall appearing euthymic with moments of anxiety/frustration when discussing perceived lack of medical updates. Thought process is linear, organized, and goal-directed. Thought content is notable for denial of current suicidal or homicidal ideation, intent, or plan; no delusions elicited. She denies hallucinations and does not appear to respond to internal stimuli. Cognition is grossly intact for the interview; she is alert and oriented, with fair attention. Insight is fair and judgment is fair, particularly regarding help-seeking and articulating needs for communication and support. DIFFERENTIAL DIAGNOSIS: Adjustment disorder with mixed anxiety and depressed mood Major depressive disorder, recurrent Demoralization syndrome Anxiety disorder due to another medical condition (PE, dyspnea) ASSESSMENT: The patients suicidal statement appears to have occurred during an episode of acute distress and physical compromise at home (dyspnea leading to EMS acti vation and subsequent PE diagnosis), in the setting of chronic medical burden and impaired mobility. On todays evaluation she is future-oriented, explicitly states she wants to live, denies SI/intent/plan, and demonstrates intact reality testing and organized thinking. Current affective presentation is predominantly euthymic with appropriate emotional reactivity. The predominant drivers of distress are medical illness, functional loss, and anxiety/frustration from poor understanding of her medical workup and plan. She would likely benefit most from improved medical communication, supportive resources, and optimization of depression treatment. Safety Assessment Current SI/HI: Denies SI/HI, intent, or plan. Past history: Denies prior attempts/self-injury. Acute risk factors: Serious medical illness (PE, uncontrolled DM, ulcers), pain/immobility, hospitalization stress, anxiety related to uncertainty, access to firearms at home. Protective factors: Clear wish to live, help-seeking behavior (called 911), spirituality/[place], supportive spouse (controls firearm access), ability to engage in care, future orientation, willingness to accept supports (bag filler machine operator, resources). Firearms: Present at home, reportedly locked; has code. Recommend reinforcing lethal means safety (continue locked storage; consider temporary off-site storage if feasible per local options). Overall acute suicide risk: Low at time of interview; chronic risk may be elevated relative to general population due to depression history and medical comorbidity. No indication for involuntary hold or inpatient psychiatry on current presentation. RECOMMENDATIONS: 1) Legal: No indication for 5150 / involuntary hold based on current evaluation (no current SI/plan/intent; statement appears situational in medical crisis context). 2) Disposition: No inpatient psychiatric admission indicated. 3) Medications: Restart home bupropion XL for depression if no medical contraindications and patient has been taking it prior to admission. - Confirm outpatient dose (reported Wellbutrin XL 300 mg daily) with outpatient pharmacy and/or current outpatient prescribing team before ordering; restart at confirmed dose per usual medication reconciliation. 4) Medical considerations (communication to reduce anxiety) - Recommend primary team (or designated covering clinician) provide the patient a clear, structured update at least daily that includes: ----What studies have been done (imaging/labs), what they show so far, and what is still pending ----Working diagnoses (e.g., PE treatment course, ulcer/wound plan, mobility plan) ----Todays plan and expected next steps - Explain to patient that uncertainty and lack of information can amplify anxiety and frustration, and that the teams goal is to reduce that by giving predictable updates. Encourage patient to keep a written list of questions for rounds. - Consider bag filler machine operator consult per patient preference for spiritual support. 5) Other (SW/CM and outpatient supports) - Social Work and/or Case Management consult for: ----Assistance coordinating outpatient follow-up (PCP, endocrinology, wound care, anticoagulation/PE follow-up, home health) ----Education/resources for IHSS (in-home supportive services) or equivalent caregiver support programs (as applicable to insurance/county) ----Transportation resources for medical visits (non-emergency medical transport options depending on coverage) ----Assessment for home health, PT/OT needs, DME (walker/wheelchair), and safe discharge planning given impaired mobility - Provide outpatient mental health resources (therapy referral options; consider integrated behavioral health or community clinics) and crisis resources as standard. GISELLE TAPIA MD Apr 14, 2025 13:38
[2025-04-14] MEDS: HEPARIN DRIP/D5W 100UNITS/ML 250 ML IV SCH (13:49)
--- NOTE | 2025-04-14 15:02 | DVHPN2 ---
Progress Note - Dictate Date Seen: Apr 14, 2025 Medical Necessity Reason Pt with a Central, PICC or Fol: No Subjective Patient is clinically stable. With the wound care recommended twice a day wound care to her lower extremity wounds however patient does not want twice a day. No complaints of chest pain shortness for breath. vital signs Vital Sign Date Time Temp Pulse Resp B/P (MAP) Pulse Ox O2 Delivery O2 Flow Rate FiO2 04/14/25 12:30 98.7 120 18 121/74 (90) 96 98.7 04/13/25 20:00 Room Air* 0 21 Total Intake and Output 04/13/25 04/13/25 04/14/25 15:00 23:00 07:00 Intake Total 20 ml 520 ml 994 ml Output Total 950 ml 450 ml Balance 20 ml -430 ml 544 ml medications Current Medications Medications Dose Ordered Sig/Mary Anne Route Start Time Stop Time Status Last Admin Dose Admin Vancomycin HCl 0 ml @ 0 mls/hr PER PHARMACY IV 04/13/25 05:45 UNV Ondansetron HCl 4 mg Q6HPRN PRN IV 04/13/25 05:45 Acetaminophen/ Hydrocodone Bitart 1 tab Q6HPRN PRN PO 04/13/25 05:45 Acetaminophen 650 mg Q6HPRN PRN PO 04/13/25 05:45 Diagnostic Test (Pha) 1 strip ACHS 04/13/25 07:00 04/14/25 11:40 1 STRIP Insulin Human Regular ACHS SC 04/13/25 07:00 04/14/25 12:58 4 UNITS Dextrose 50 ml UD PRN IV 04/13/25 05:45 Hydralazine HCl 25 mg Q6HR PO 04/13/25 12:00 04/14/25 05:51 25 MG Metoprolol Tartrate 2.5 mg Q6HPRN PRN IV 04/13/25 10:45 Pantoprazole Sodium 40 mg BID@0600,1700 PO 04/13/25 17:00 04/14/25 05:51 40 MG Insulin Glargine 10 units HS SC 04/13/25 22:00 04/13/25 21:37 10 UNITS Iron Sucrose 110 ml @ 110 mls/hr DAILY@1200 IV 04/14/25 12:00 04/18/25 11:59 04/14/25 13:33 110 MLS/HR Clindamycin Phosphate 50 ml @ 50 mls/hr Q8H IV 04/14/25 02:00 04/14/25 11:40 50 MLS/HR Heparin Sodium/ Dextrose 250 ml @ 14 mls/hr [id number] IV 04/14/25 13:45 04/14/25 13:49 14 MLS/HR objective Alert awake oriented to place and person. Anxious female but comfortable in bed. Had a tele psych evaluation yesterday and report is reviewed. HEENT neck supple no JVD. Heart regular rate and rhythm. Lungs fair air movement without rales wheezes. Abdomen obese soft positive bowel sounds. Extremities improved edema. laboratory and microbiology Laboratory Tests 04/14/25 04:45 04/13/25 01:28 Test 04/13/25 01:28 Range/Units Serum Glucose 383 H 74-106 mg/dL Assessment/Plan Patient is clinically stable. I have discussed once again the results of her CT angiogram of the chest that she had blood clots in the lungs as well as blood clots in the legs. Also stressed the importance of getting at least daily wound care given the patient has significant wounds and the risks of sepsis if not treated appropriately. Otherwise patient is clinically stable. We will continue wound care continue antibiotics. I will transition IV heparin to oral Eliquis for treatment of DVT PE. Discussed with her the risks of bleeding. Continue IV iron for anemia. Discussed with the patient regarding her hemoglobin levels. Continue present care plan. Further clinical management per clinical course. Patient verbalized understanding over hospital diagnosis, treatment she is receiving and agree with the care plan as outlined. Problems(with codes): (1) Swelling of lower extremity (2) Uncontrolled diabetes mellitus (3) Venous stasis ulcer (4) Lower extremity cellulitis (5) Anemia Dietary Evaluation Review Comments: CCHO-60 with Esvin BID for wound healing Expected Outcomes/Goals: controlled DM, gradually healed wounds, gradual wt loss Plan discussed with: Patient, Other ROBERTO CABRERA MD Apr 14, 2025 15:02
--- NOTE | 2025-04-14 17:24 | MEDREC ---
[facility] Intervention Section I [facility] Intervention: Review courses of therapy (PLEASE CONSIDER ADDING GRAM NEGATIVE COVERAGE FOUND IN THE WOUND CULTURE) FLORENTIN LOREDO PHARMACIST Apr 14, 2025 17:24
[2025-04-14] MEDS: APIXABAN 5 MG TAB PO SCH (22:05)
[2025-04-14] MEDS: INSULIN LANTUS (GLARGINE) 1 /0.01ml (100units/ml) SC SCH (22:21)
--- NOTE | 2025-04-14 22:51 | DVHINCON2 ---
Family History: FH: congestive heart failure G8 MOTHER FH: dementia G8 FATHER Allergies: Coded Allergies: Amoxicillin (Verified Allergy, Unknown, 07/26/22) Penicillins (Verified Allergy, Unknown, 07/26/22) Current Medications Current Medications Medications (Trade) Dose Ordered Sig/Mary Anne Route PRN Reason Start Time Stop Time Status Last Admin Iron Sucrose 110 ml @ 110 mls/hr DAILY@1200 IV 04/14/25 12:00 04/18/25 11:59 04/14/25 13:33 Clindamycin Phosphate 50 ml @ 50 mls/hr Q8H IV 04/14/25 02:00 04/14/25 17:48 Heparin Sodium/ Dextrose 250 ml @ 14 mls/hr [id number] IV 04/14/25 13:45 04/14/25 14:58 DC 04/14/25 13:49 Insulin Glargine (Lantus) 15 units HS SC 04/14/25 22:00 04/14/25 22:21 Apixaban (Eliquis) 10 mg BID PO 04/14/25 22:00 04/21/25 21:59 04/14/25 22:05 Vital Signs Vital Signs Date Time Temp Pulse Resp B/P (MAP) Pulse Ox O2 Delivery O2 Flow Rate FiO2 04/14/25 20:00 96 Room Air* 0 21 04/14/25 17:55 155/85 04/14/25 16:50 98.7 102 16 98.7 Labs/Diagnostic Data Labs Test 04/14/25 22:07 04/14/25 10:55 04/14/25 04:45 04/13/25 11:46 Range/Units POC Glucose 278 H 70-106 mg/dl Prothrombin Time 10.5 9.3-11.8 sec Prothrombin Time INR 0.99 0.9-1.15 Activated Partial Thromboplast Time > 139.0 *H 24.5-34.5 SEC White Blood Count 10.5 4.4-10.8 10^3/uL Red Blood Count 2.83 L 4.0-5.20 10^6/uL Hemoglobin 7.4 L 12.2-16.2 g/dL Hematocrit 24.0 #L 36.0-46.0 % Mean Corpuscular Volume 85.1 80.0-100.0 fL Mean Corpuscular Hemoglobin 26.3 L 28.0-32.0 pg Mean Corpuscular Hemoglobin Concent 30.9 L 32.0-36.0 g/dL Red Cell Distribution Width 23.0 H 11.8-14.3 % Platelet Count 221 140-450 10^3/uL Mean Platelet Volume 8.4 6.9-10.8 fL Neutrophils (%) (Auto) 76.8 37.0-80.0 % Lymphocytes (%) (Auto) 19.1 10.0-50.0 % Monocytes (%) (Auto) 3.4 0.0-12.0 % Eosinophils (%) (Auto) 0.2 0.0-7.0 % Basophils (%) (Auto) 0.5 0.0-2.0 % Neutrophils # (Auto) 8.1 1.6-8.6 10 ^3/uL Lymphocytes # (Auto) 2.0 0.4-5.4 10 ^3/uL Monocytes # (Auto) 0.4 0-1.3 10 ^3/uL Eosinophils # (Auto) 0 0-0.8 10 ^3/uL Basophils # (Auto) 0.1 0-0.2 10 ^3/uL Nucleated Red Blood Cells 0.1 % D-Dimer, Quantitative 3.56 H 0.0-0.49 mg/L FEU Test 04/13/25 04:49 04/13/25 02:26 04/13/25 01:28 Range/Units Troponin I High Sensitivity 20 </=34 ng/L Urine Color Light-yellow Yellow Urine Clarity Clear Clear Urine pH 5.5 5.0-9.0 Urine Specific [place] 1.022 1.001-1.035 Urine Protein Trace H Negative Urine Ketones Negative Negative Urine Blood Negative Negative /uL Urine Nitrite Negative Negative Urine Bilirubin Negative Negative Urine Urobilinogen Normal Negative mg/dL Urine Leukocyte Esterase Negative Negative /uL Urine RBC 1 0 - 4 /hpf Urine Microscopic WBC 2 0-5 /HPF Urine Squamous Epithelial Cells Few <5 /hpf Urine Bacteria None seen None Seen /hpf Urine Glucose 4+ H Normal mg/dL Urine Opiates Screen Neg NEGATIVE Urine Fentanyl Screen Neg NEGATIVE Urine Barbiturates Screen Neg NEGATIVE Urine Phencyclidine Screen Neg NEGATIVE Urine Amphetamines Screen Neg NEGATIVE Urine Benzodiazepines Screen Neg NEGATIVE Urine Cocaine Screen Neg NEGATIVE Urine Cannabinoids Screen Neg NEGATIVE Sodium Level 143 136-145 mmol/L Potassium Level 4.0 3.5-5.1 mmol/L Chloride Level 105 98-107 mmol/L Carbon Dioxide Level 27 20-31 mmol/L Anion Gap 11 5-15 Blood Urea Nitrogen 23 9-23 mg/dL Creatinine 0.95 0.550-1.02 mg/dL Glomerular Filtration Rate Calc 72 >90 mL/min BUN/Creatinine Ratio 24.2 H 10.0-20.0 Serum Glucose 383 H 74-106 mg/dL Lactic Acid Level 1.6 0.4-2.0 mmol/L Calcium Level 8.3 L 8.7-10.4 mg/dL Iron Level 10 L 50-170 ug/dL Total Iron Binding Capacity 260 250-425 ug/dL Percent Iron Saturation 3.8 L 15-50 % Ferritin 88.9 10-291 ng/mL Total Bilirubin 0.3 0.2-1.0 mg/dL Aspartate Amino Transferase (AST) 23 13-40 U/L Alanine Aminotransferase (ALT) 21 7-40 U/L Alkaline Phosphatase 125 H 46-116 U/L Total Protein 5.2 L 5.7-8.2 g/dL Albumin 3.1 L 3.2-4.8 g/dL Salicylates Level < 3.0 -30 mg/dL Acetaminophen Level < 2.0 L 10.0-20.0 UG/ML Plasma/Serum Blood Alcohol < 3.0 <10 mg/dL Microbiology Date/Time Source Procedure Growth Status 04/13/25 07:40 Leg Right Gram Stain Pending Resulted 04/13/25 07:40 Leg Right Wound Culture - Preliminary Resulted 04/13/25 01:39 Blood Blood Culture - Preliminary NO GROWTH AFTER 24 HOURS OF INCUBATION. Resulted SOHEILA RICKETTS MD Apr 14, 2025 22:50
[2025-04-15] VITALS (7 sets, daily range): BP systolic 135–164; BP diastolic 68–94; PULSE 85–110; RESP 17–18; TEMP 36.9; O2SAT 95–99
[2025-04-15 06:11] LABS: Nucleated Red Blood Cells % 0.2 %
[2025-04-15 06:14] LABS: Hematocrit 22.4 % (36.0-46.0); Hemoglobin 7.2 g/dL (12.2-16.2); Mean Corpuscular Hemoglobin 27.4 pg (28.0-32.0); Mean Corpuscular Volume 85.6 fL (80.0-100.0)
[2025-04-15 06:33] LABS: Chloride 107 mmol/L (98-107); Potassium 4.0 mmol/L (3.5-5.1); Sodium 142 mmol/L (136-145)
[2025-04-15 06:34] LABS: Anion Gap 11 (5-15); Calcium 8.2 mg/dL (8.7-10.4); Carbon Dioxide 24 mmol/L (20-31)
[2025-04-15 06:39] LABS: BUN/Creatinine Ratio 22.2 (10.0-20.0); Blood Urea Nitrogen 16 mg/dL (9-23)
[2025-04-15 06:41] LABS: Glucose 190 mg/dL (74-106)
[2025-04-15] MEDS ORDERED: CLIN1CAP70 PO (14:44)
[2025-04-15] MEDS ORDERED: PANT40TA57 PO (14:44)
[2025-04-15] MEDS ORDERED: HYDR50TA47 PO (14:44)
[2025-04-15] MEDS ORDERED: APIX5TAB4 PO (14:44)
--- NOTE | 2025-04-15 14:51 | DVHDS2 ---
Discharge Summary Date of Admission Apr 13, 2025 at 05:44 Date of Discharge: Apr 15, 2025 Labs/Diagnostic Data: Laboratory Results Test 04/15/25 12:13 04/15/25 05:08 04/14/25 10:55 04/13/25 11:46 POC Glucose 196 mg/dl (70-106) White Blood Count 8.9 10^3/uL (4.4-10.8) Red Blood Count 2.61 10^6/uL (4.0-5.20) Hemoglobin 7.2 g/dL (12.2-16.2) Hematocrit 22.4 % (36.0-46.0) Mean Corpuscular Volume 85.6 fL (80.0-100.0) Mean Corpuscular Hemoglobin 27.4 pg (28.0-32.0) Mean Corpuscular Hemoglobin Concent 32.1 g/dL (32.0-36.0) Red Cell Distribution Width 22.6 % (11.8-14.3) Platelet Count 225 10^3/uL (140-450) Mean Platelet Volume 8.0 fL (6.9-10.8) Neutrophils (%) (Auto) 86.5 % (37.0-80.0) Lymphocytes (%) (Auto) 10.7 % (10.0-50.0) Monocytes (%) (Auto) 2.8 % (0.0-12.0) Eosinophils (%) (Auto) 0.0 % (0.0-7.0) Basophils (%) (Auto) 0.0 % (0.0-2.0) Neutrophils # (Auto) 7.7 10 ^3/uL (1.6-8.6) Lymphocytes # (Auto) 0.9 10 ^3/uL (0.4-5.4) Monocytes # (Auto) 0.3 10 ^3/uL (0-1.3) Eosinophils # (Auto) 0 10 ^3/uL (0-0.8) Basophils # (Auto) 0 10 ^3/uL (0-0.2) Nucleated Red Blood Cells 0.2 % Sodium Level 142 mmol/L (136-145) Potassium Level 4.0 mmol/L (3.5-5.1) Chloride Level 107 mmol/L (98-107) Carbon Dioxide Level 24 mmol/L (20-31) Anion Gap 11 (5-15) Blood Urea Nitrogen 16 mg/dL (9-23) Creatinine 0.72 mg/dL (0.550-1.02) Glomerular Filtration Rate Calc 101 mL/min (>90) BUN/Creatinine Ratio 22.2 (10.0-20.0) Serum Glucose 190 mg/dL (74-106) Calcium Level 8.2 mg/dL (8.7-10.4) Prothrombin Time 10.5 sec (9.3-11.8) Prothrombin Time INR 0.99 (0.9-1.15) Activated Partial Thromboplast Time > 139.0 SEC (24.5-34.5) D-Dimer, Quantitative 3.56 mg/L FEU (0.0-0.49) Test 04/13/25 04:49 04/13/25 02:26 04/13/25 01:28 Troponin I High Sensitivity 20 ng/L (</=34) Urine Color Light-yellow (Yellow) Urine Clarity Clear (Clear) Urine pH 5.5 (5.0-9.0) Urine Specific [place] 1.022 (1.001-1.035) Urine Protein Trace (Negative) Urine Ketones Negative (Negative) Urine Blood Negative /uL (Negative) Urine Nitrite Negative (Negative) Urine Bilirubin Negative (Negative) Urine Urobilinogen Normal mg/dL (Negative) Urine Leukocyte Esterase Negative /uL (Negative) Urine RBC 1 /hpf (0 - 4) Urine Microscopic WBC 2 /HPF (0-5) Urine Squamous Epithelial Cells Few /hpf (<5) Urine Bacteria None seen /hpf (None Seen) Urine Glucose 4+ mg/dL (Normal) Urine Opiates Screen Neg (NEGATIVE) Urine Fentanyl Screen Neg (NEGATIVE) Urine Barbiturates Screen Neg (NEGATIVE) Urine Phencyclidine Screen Neg (NEGATIVE) Urine Amphetamines Screen Neg (NEGATIVE) Urine Benzodiazepines Screen Neg (NEGATIVE) Urine Cocaine Screen Neg (NEGATIVE) Urine Cannabinoids Screen Neg (NEGATIVE) Lactic Acid Level 1.6 mmol/L (0.4-2.0) Iron Level 10 ug/dL (50-170) Total Iron Binding Capacity 260 ug/dL (250-425) Percent Iron Saturation 3.8 % (15-50) Ferritin 88.9 ng/mL (10-291) Total Bilirubin 0.3 mg/dL (0.2-1.0) Aspartate Amino Transferase (AST) 23 U/L (13-40) Alanine Aminotransferase (ALT) 21 U/L (7-40) Alkaline Phosphatase 125 U/L (46-116) Total Protein 5.2 g/dL (5.7-8.2) Albumin 3.1 g/dL (3.2-4.8) Salicylates Level < 3.0 mg/dL (-30) Acetaminophen Level < 2.0 UG/ML (10.0-20.0) Plasma/Serum Blood Alcohol < 3.0 mg/dL (<10) Other Laboratory Tests 04/15/25 05:08 Brief Hx & Hospital Course: Mrs. Lila Price is a 54-year-old female with a history of DM, non compliant, hypertension, chronic venous stasis, who presents with a chief complaint of shortness of breath for suicidal ideations. Patient is on room air with 02 saturations of 97% with no respiratory distress. Patient reports she forgot to take her insulin and that is why her glucose levels are high. Patient reports she does not have anymore SI or thoughts of harming others. Patient states last time she saw wound care was about a month ago and has been managing her diabetic leg ulcers on her own. Patient denies chest pain, fevers, chills. Patient admitted for further evaluation and treatment. She is admitted and counseled and educated regarding her nonadherence to medications and follow up. She is highly encouraged to have follow up with the PCP and consider weight loss programs and medications. Patient given her bed- bound status noted to have a bilateral lower extremity DVTs and subsequent pulmonary embolism on imaging studies done at this hospital. Patient is started on IV heparin drip and subsequently transitioned to oral Eliquis. Her hemoglobin remained stable without any evidence of acute bleeding. Patient had chronic bilateral lower extremity wounds for which she underwent wound care and recommended twice a day wound care aggressively to prevent worsening wounds and sepsis. However patient refused to have it done twice a day and wants only every three days. Therefore I have talked with the patient regarding importance of at least daily wound care to prevent sepsis and . She is also advised to have aggressive risk factor modification including good blood pressure and blood sugar control given delayed/poor wound healing with the poorly controlled blood sugars. Otherwise while in the hospital patient clinically remained stable. No acute cardiopulmonary issues. She is evaluated by psychiatrist as well. Overall given the patient is being stable not having any other acute interventions it is felt she could be safely discharged home to continue daily wound care with home health and close follow up with the PCP. Patient is advised to continue the medications as prescribed especially blood thinners for her blood clots. The risks of bleeding and beta blockers of prevention of clots discussed at length with the patient. She has verbalized understanding of this, verbalized understanding over hospital diagnosis, CT and ultrasound results, discharge medications including side effects, discharge instructions and agree with follow-up plan of care as outlined. Operations or Procedures Bilateral lower extremity venous duplex CLINICAL HISTORY: swelling,pain COMPARISON: VAS VENOUS REFLUX INSUFFICIENCY BILAT on DOS: 10/03/23, US BILAT LOWER DVT on DOS: 03/06/23 TECHNIQUE: Duplex Doppler evaluation of the deep venous systems of both lower extremities from the common femoral veins to the popliteal veins including color Doppler and spectral/pulsed waveform analysis was performed. FINDINGS/IMPRESSION: Extensive deep vein thrombosis seen within bilateral lower extremities with nonocclusive thrombi within bilateral common femoral vein and occlusive thrombi within the bilateral SFV prox through the popliteal veins. Dr. Stroud was notified by Corinne Johnson at 10:30am PST on 04/13/25 Chest with intravenous contrast INDICATION: Shortness of breath with DVT IMPRESSION: 1. Multiple right-sided segmental and subsegmental pulmonary emboli. No right heart strain. 2. Wedge-shaped density in the right upper lobe may reflect pulmonary infarct versus mild pneumonia. Critical Findings: The report indicates multiple pulmonary emboli, which is a critical condition requiring urgent attention. Findings discussed with IVIS HANCOCK at 04/13/2025, who acknowledged receipt and understanding of the findings. Critical findings discussed with NAYE Olson by Dr. Yao via phone on 04/13/2025 05:33 PM. Condition at Discharge: Stable Final Diagnosis/Problems List Chronic bed-bound status, chronic bilateral lower extremity wounds, lower extremity cellulitis, morbid obesity BMI 44, bilateral lower extremity DVT and acute pulmonary embolism Discharge Disposition: Home with Health Services Discharge Instruct/Medications Diet: Consistent carbohydrate, Cardiac 2g Na,low cholest Activity: No Restrictions, As Tolerated Follow Up/Referral: Primary care physician after two weeks to evaluate lower extremity wounds and further manage DVT and pulmonary embolism/clots and have referral to outpatient [facility] Medications: Take medications as prescribed. Scheduled Apixaban Base (Eliquis Starter Pack), 5 MG PO BID Clindamycin Hcl (Clindamycin Hcl), 2 CAP PO TID Hydralazine Hcl (Hydralazine Hcl), 1 TAB PO BID Pantoprazole Sodium Sesquihydr (Pantoprazole Sodium Dr), 40 MG PO QPM Discharge Statement: "Patient was advised to return to the ER or call 911 if any headaches, dizziness, shortness of breath, chest pain, abdominal pain, bleeding, fevers, or worsening of medical condition. Patient was counseled about treatment plan, medications, possible side effects, patientverbalized understanding. All questions were answered to the best of my ability. This discharge took greater then 30 minutes in planning, reviewing documentation, counseling the patient, and discussing with other team members." ASSESSMENT ASSESSMENT Assessment Chronic bed-bound status, chronic bilateral lower extremity wounds, lower extremity cellulitis, morbid obesity BMI 44, bilateral lower extremity DVT and acute pulmonary embolism ROBERTO CABRERA MD Apr 15, 2025 14:51
--- NOTE | 2025-04-16 03:08 | DVHPN2 ---
Consult Progress Note Objective vital signs Vital Sign Date Time Temp Pulse Resp B/P (MAP) Pulse Ox O2 Delivery O2 Flow Rate FiO2 04/15/25 20:00 Room Air* 0 21 04/15/25 17:00 98.6 108 18 164/94 (117) 98 98.6 Total Intake and Output 04/15/25 04/15/25 04/16/25 15:00 23:00 07:00 Intake Total 50 ml 800 ml Output Total 500 ml Balance 50 ml 300 ml medications Current Medications Medications Dose Ordered Sig/Mary Anne Route Start Time Stop Time Status Last Admin Dose Admin Vancomycin HCl 0 ml @ 0 mls/hr PER PHARMACY IV 04/13/25 05:45 UNV laboratory and microbiology Laboratory Tests 04/15/25 05:08 Test 04/15/25 05:08 Range/Units Serum Glucose 190 H 74-106 mg/dL Dietary Evaluation Review Comments: CCHO-60 with Evsin BID for wound healing Expected Outcomes/Goals: controlled DM, gradually healed wounds, gradual wt loss SOHEILA RICKETTS MD Apr 16, 2025 03:08
== END 2025-04-15 21:15 | disposition home health service (06) | DRG 637 ==
LOC: ER 00:38 → EDBD 00:38 → OVERFLOW 05:44 → WEST WING 16:34 → TELE-WESTW 18:16
PROVIDERS: ADMIT Nurse Practitioner Family; ATTEND Nurse Practitioner Family
DX: E11.628 Type 2 diabetes mellitus with other skin complications (principal); I26.99 Other pulmonary embolism without acute cor pulmonale; L98.499 Non-pressure chronic ulcer of skin of other sites with unspecified severity; R45.851 Suicidal ideations; L03.115 Cellulitis of right lower limb; E11.622 Type 2 diabetes mellitus with other skin ulcer; D64.9 Anemia, unspecified; L03.116 Cellulitis of left lower limb; I82.413 Acute embolism and thrombosis of femoral vein, bilateral; I82.433 Acute embolism and thrombosis of popliteal vein, bilateral; Z68.41 Body mass index [BMI] 40.0-44.9, adult; I10 Essential (primary) hypertension; F32.A Depression, unspecified; E66.01 Morbid (severe) obesity due to excess calories; E11.65 Type 2 diabetes mellitus with hyperglycemia; I87.8 Other specified disorders of veins; F41.9 Anxiety disorder, unspecified; Z79.899 Other long term (current) drug therapy; Z79.4 Long term (current) use of insulin; Z82.49 Family history of ischemic heart disease and other diseases of the circulatory system; Z88.0 Allergy status to penicillin; Z91.148 Patient's other noncompliance with medication regimen for other reason; Z74.01 Bed confinement status
CPT/HCPCS: 36415; 71045; 71275; 73620; 80048; 80053; 80307; 80320; 80329; 81001; 82728; 82962; 83540; 83550; 83605; 84484; 85025; 85379; 85610; 85730; 87040; 87077; 87081; 87186; 87205; 93970; 99291; G0378; J1756; J1815; J3490